=== PATIENT | female | born 1990 | race Caucasian/White ===

== ENCOUNTER 2017-04-09 08:14 | Emergency (ER) | payer OTHER ==
[~2017-04-09] VITALS: Ht 162.6 cm; Wt 97.0 kg
[~2017-04-09 08:14] MED LIST: SUBO8MIS SL; Z.0.BCPILL PO; ZITH250T PO
[2017-04-09 08:16] VITALS: BP 139/95; PULSE 87; RESP 16; TEMP 98.4; O2SAT 99
[2017-04-09] MEDS ORDERED: IBUPROFEN 800 MG TAB PO ONE (08:45)
[2017-04-09] MEDS ORDERED: METHOCARBAMOL 500 MG TAB PO ONE (08:45)
--- NOTE | 2017-04-09 08:51 | PD ---
HPI Chief Complaint: Back/ Neck Pain or Injury Time Seen by Provider: 08:45 Travel History International Travel<30 days: No Contact w/Intl Traveler<30days: No Traveled to known affect area: No History of Present Illness HPI 27-year-old female presents to the emergency Department with complaint of right mid back pain since yesterday. Denies injury or heavy lifting. Denies recent illness including fever, cough, nasal congestion. Denies shortness of breath. Says pain is worse with deep inspiration and yawning. Says the pain is somewhat aggravated with movement. Says pain is not too bad at this time. Took ibuprofen last night for symptom management. Symptoms are mild in severity. Has no other medical complaints. No known allergies. No other modifying factors or associated signs and symptoms. PFSH Past Medical History Depression: Yes Diminished Hearing: No Immunizations Current: Yes ?: Not LMP: 03/2017 : 3 Para: 2 : 1 Past Surgical History Surgical History: No Previous Surgery Tonsillectomy: Yes Social History Alcohol Use: Yes (SOCIALLY) Tobacco Use: Yes (1PPD) Substance Use: No Allergies-Medications (Allergen,Severity, Reaction): Coded Allergies: No Known Allergies (Unverified , 04/09/17) Reported Meds & Prescriptions Reported Meds & Active Scripts Active Ibuprofen 800 Mg Tab 800 Mg PO Q6HR PRN Robaxin (Methocarbamol) 500 Mg Tab 500 Mg PO QID PRN Zithromax Z-Sharath (Azithromycin) 250 Mg Tab 250 Mg PO DIRECTED 5 Days 500 MG (2 TABLETS) PO ON DAY 1, THEN 250 MG (1 TABLET) PO ON DAYS 2 TO 5. Reported Control Pills (Miscellaneous Medication) Tab 1 Tab PO DAILY Suboxone 8 mg/2 mg 1 Tab Tab 1 Tab SL DAILY Review of Systems Except as stated in HPI: all other systems reviewed are Neg Physical Exam Narrative GENERAL: Well-nourished, well-developed female patient, in no acute distress SKIN: Warm and dry. HEAD: Atraumatic. Normocephalic. EYES: Pupils equal and round. No scleral icterus. No injection or drainage. ENT: Mucosa pink and moist. Airway patent. NECK: Trachea midline. CARDIOVASCULAR: Regular rate and rhythm. No murmur appreciated. RESPIRATORY: No accessory muscle use. Clear to auscultation. Breath sounds equal bilaterally. GASTROINTESTINAL: Rounded. MUSCULOSKELETAL: No obvious deformities. No clubbing. No cyanosis. No edema. BACK: No rash. No midline point tenderness on palpation of the thoracic spine. No reproducible tenderness to the right musculature of the thoracic back. NEUROLOGICAL: Awake and alert. Oriented 3. No obvious cranial nerve deficits. Motor grossly within normal limits. Normal speech. PSYCHIATRIC: Appropriate mood and affect; insight and judgment normal. Data Data Last Documented VS Vital Signs Date Time Temp Pulse Resp B/P (MAP) Pulse Ox O2 Delivery O2 Flow Rate FiO2 04/09/17 08:16 98.4 87 16 139/95 (110) 99 Room Air Orders Orders Chest, Pa & Lat (04/09/17 08:45) Ibuprofen (Motrin) (04/09/17 08:45) Methocarbamol (Robaxin) (04/09/17 08:45) MDM Medical Decision Making Medical Screen Exam Complete: Yes Emergency Medical Condition: Yes Medical Record Reviewed: Yes Differential Diagnosis Muscle strain, muscle spasm, costochondritis, pneumonia Narrative Course 27-year-old female with right thoracic back pain. Denies injury. No midline tenderness on palpation of the thoracic spine. Lung sounds are clear and equal throughout. No retractions. Tachypnea. Patient is in no acute distress. Says the pain is worse with deep inspiration and yawning. I am unable to reproduce tenderness to the musculature of the affected area. We'll obtain chest x-ray to rule out acute process. Ibuprofen and Robaxin administered in the ER. 0914: Chest x-ray concludes: No acute cardiopulmonary disease. X-ray report discussed with patient. Ibuprofen and Robaxin prescribed for home. Instructed patient to follow up with primary care provider. Patient verbalizes understanding and agreement with treatment plan. Patient is medically cleared and stable for discharge. Discussed reasons to return to the emergency department. Patient agrees with treatment plan. The patients vital signs are stable and the patient is stable for outpatient follow-up and treatment. Patient discharged home, stable and in no acute distress. Diagnosis Primary Impression: Right-sided thoracic back pain Qualified Codes: M54.6 - Pain in thoracic spine Referrals: Primary Care Physician Patient Instructions: Back Pain (ED), General Instructions, Muscle Spasm (ED), Muscle Strain (ED) Departure Forms: Tests/Procedures, Work Release Enter return to work date: Apr 10, 2017 Additional Instructions: Ibuprofen or Tylenol as directed and as needed to reduce pain Robaxin as prescribed and as needed to reduce muscle spasms Heating pad and/or ice to affected area to reduce pain Avoid aggravating activities; increase activity as tolerated Gentle stretching to the affected muscle may be helpful Follow-up with a primary care provider Return to the emergency department immediately with worsening of symptoms Med/Other Pt SpecificInfo: Prescription(s) given Scripts Ibuprofen (Ibuprofen) 800 Mg Tab 800 MG PO Q6HR Y for PAIN, #40 TAB 0 Refills Prov: Yudelka Camara 04/09/17 Methocarbamol (Robaxin) 500 Mg Tab 500 MG PO QID Y for MUSCLE SPASM, #30 TAB 0 Refills Prov: Yudelka Camara 04/09/17 Disposition: 01 DISCHARGE HOME Condition: Stable Yudelka Camara Apr 09, 2017 08:51
[2017-04-09] MEDS ORDERED: IBUP800T23 PO (08:57)
[2017-04-09] MEDS ORDERED: ROBA500T PO (08:57)
--- NOTE | 2017-04-09 09:08 | RADRPT ---
EXAM DATE/TIME: 04/09/2017 09:04 [facility] COMPARISON: No previous studies available for comparison. INDICATIONS : Left posterior rib pain. MEDICAL HISTORY : None. SURGICAL HISTORY : None. ENCOUNTER: Initial ACUITY: 1 day PAIN SCORE: 6/10 LOCATION: Left posterior rib FINDINGS: PA and lateral views of the chest demonstrate the lungs to be symmetrically aerated without evidence of mass, infiltrate or effusion. The cardiomediastinal contours are unremarkable. Osseous structure s are intact. No significant displaced rib fractures. CONCLUSION: 1. No acute cardiopulmonary disease. Erik Estrada MD on April 09, 2017 at 9:05 Board Certified Radiologist. This report was verified electronically.
== END 2017-04-09 09:42 | disposition home or self-care (01) ==
LOC: NEPD 08:14
DX: M54.6 Pain in thoracic spine (principal); M62.830 Muscle spasm of back; F17.200 Nicotine dependence, unspecified, uncomplicated; Z86.59 Personal history of other mental and behavioral disorders
CPT/HCPCS: 71020; 99283